=== PATIENT | male | born 1995 | race African-American/Black ===

== ENCOUNTER 2021-08-18 06:30 | Emergency (ER) | payer SELFPAY ==
[~2021-08-18] VITALS: Ht 172.7 cm; Wt 84.1 kg
[2021-08-18] MEDS ORDERED: ONDANSETRON ODT 4 MG TAB.RAPDIS. PO ONE (07:30)
[2021-08-18] MEDS ORDERED: ACETAMINOPHEN 325 MG TABLET. PO ONE (07:30)
[2021-08-18] MEDS ORDERED: IBUPROFEN 200 MG TABLET. PO ONE (07:30)
[2021-08-18 07:48] LABS: INFLUENZA A PATIENT NEGATIVE (NEGATIVE); INFLUENZA B PATIENT NEGATIVE (NEGATIVE)
[2021-08-18] MEDS ORDERED: ONDA4TAB7 PO (07:59)
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
[2021-08-18] MEDS ORDERED: IV NORMAL SALINE 1000ML BAG 1,000 ML IV ONE (08:15)
[2021-08-18] MEDS ORDERED: KETOROLAC 15 MG/ML VIAL. IVP ONE (08:30)
[2021-08-18 08:36] VITALS: BP 133/60
--- NOTE | 2021-08-18 16:14 | NUR ---
IP: Attempted to contact pt concerning covid results. No answer, left a voicemail to return the call.
== END 2021-08-18 08:37 | disposition home or self-care (01) ==
LOC: ER 06:30
DX: R50.9 Fever, unspecified (principal); R11.2 Nausea with vomiting, unspecified; R51.9 Headache, unspecified; R63.0 Anorexia; F17.200 Nicotine dependence, unspecified, uncomplicated; Z20.822 Contact with and (suspected) exposure to COVID-19
CPT/HCPCS: 87426; 87804; 99284; U0003; U0005